=== PATIENT | female | born 1980 | race Caucasian/White ===

== ENCOUNTER 2019-03-30 20:23 | Emergency (ER) | payer SELFPAY ==
[~2019-03-30] VITALS: Ht 165.1 cm; Wt 133.8 kg
[2019-03-30 20:33] VITALS: BP 137/89
--- NOTE | 2019-03-30 22:26 | NUR ---
PATIENT CALLED FOR RECHECK. NO RESPONSE AT THIS TIME
--- NOTE | 2019-03-30 22:37 | NUR ---
PATIENT CALLED FOR RECHECK, NO RESPONSE.
--- NOTE | 2019-03-30 22:56 | NUR ---
CALLED PATIENT NO RESPONSE
== END 2019-03-30 22:28 | disposition left against medical advice (07) ==
LOC: MED 20:23
DX: R11.10 Vomiting, unspecified (principal); R51 Headache; R05 Cough; F41.9 Anxiety disorder, unspecified; F32.9 Major depressive disorder, single episode, unspecified; Z53.21 Procedure and treatment not carried out due to patient leaving prior to being seen by health care provider